=== PATIENT | male | born 1930 | race Caucasian/White ===

== ENCOUNTER 2016-11-01 10:19 | Inpatient (IN) | payer MEDICARE ==
[~2016-11-01] VITALS: Ht 152.4 cm; Wt 54.7 kg
[~2016-11-01 10:19] MED LIST: ACET-1757 PO; AMLO10TA4 PO; ASPI-650 PO; CEFD300C37 PO; CEPH-376 PO; DICY10CA53 PO; FERR324T5 PO; FERR324T8 PO; FURO-93 PO; HYDR-3144 PO; HYDR1TAB16 PO; ISOS60TA PO; LEVO125T5 PO; LEVO75TA5 PO; LISI-167 PO; LISI-170 PO; LISI40TA PO; METF500T4 PO; METO-93 PO; NITR0.4T8 SL; OMEP-110 PO; OXYC1TAB8 PO; PANT40TA3 PO; POTA10TA11 PO; SIMV10TA3 PO; SPIR50TA2 PO; SUCR1TAB PO; SUCR1TAB26 PO; SULF1TAB24 PO; TAMS0.4C2 PO; TEMA15CA PO; TEMA15CA6 PO; TERA10CA3 PO
[2016-11-01] MEDS ORDERED: SODIUM CHLORIDE 0.9% 1,000ML IVBOLUS ONE (11:30)
[2016-11-01] MEDS ORDERED: ACETAMINOPHEN 500 MG TABLET PO ONE (11:30)
[2016-11-01 12:07] LABS: ASPARTATE AMINO TRANSFERASE 14 U/L (15-37); BLOOD UREA NITROGEN 41 mg/dL (7-18)
[2016-11-01] MEDS ORDERED: ACETAMINOPHEN 500 MG TABLET ONE (12:11)
[2016-11-01] MEDS ORDERED: DICY10CA3 PO (12:19)
[2016-11-01] MEDS ORDERED: GABA600T2 PO (12:19)
[2016-11-01] MEDS ORDERED: GABA300C10 PO (12:19)
[2016-11-01] MEDS ORDERED: CEFTRIAXONE PMX 1GM/50ML 50 ML ONE (12:22)
[2016-11-01] MEDS ORDERED: AZITHROMYCIN 500 MG in SODIUM CHLORIDE 0.9% 250 ML IVPB ONE (12:30)
[2016-11-01] MEDS ORDERED: CEFTRIAXONE PMX 1GM/50ML 50 ML IVPB ONE (12:30)
[2016-11-01] MEDS ORDERED: SODIUM CHLORIDE 0.9% 1,000 ML IV ONE (12:53)
[2016-11-01] MEDS ORDERED: SODIUM CHLORIDE FLUSH 10ML SYR IVF PRN (13:00)
[2016-11-01] MEDS ORDERED: ONDANSETRON 2MG/ML, 2ML IVPush PRN (14:00)
[2016-11-01] MEDS ORDERED: ACETAMINOPHEN 325 MG TABLET PO PRN (14:00)
[2016-11-01] MEDS ORDERED: HYDROcodone/APAP 5/325 TABLET PO PRN (14:00)
[2016-11-01] MEDS ORDERED: morphine SULFATE 10 MG/ML, 1ML IVPush PRN (14:00)
[2016-11-01] MEDS ORDERED: hydrALAzine 20 MG/ML, 1ML IVPush PRN (14:00)
[2016-11-01] MEDS ORDERED: TEMAZEPAM 15 MG CAPSULE PO PRN (14:00)
[2016-11-01 14:30] VITALS: BP 105/61
[2016-11-01] MEDS: INSULIN ASPART 100 UNITS/ML, PEN SQ-INSULIN SCH ×2 (16:00→20:49)
[2016-11-01 18:59] VITALS: BP 104/60
[2016-11-01] MEDS: DICYCLOMINE 10 MG CAPSULE PO SCH ×2 (19:18→21:26)
[2016-11-01] MEDS: DOXYCYCLINE 100MG TABLET PO SCH (20:29)
[2016-11-01] MEDS: GABAPENTIN 300 MG CAPSULE PO SCH (20:29)
[2016-11-01] MEDS: TAMSULOSIN 0.4 MG CAP.ER.24H PO SCH (20:29)
[2016-11-01] MEDS: SUCRALFATE 1 GM TABLET PO SCH (20:29)
[2016-11-01] MEDS: SODIUM CHLORIDE 0.9% 1,000 ML IV SCH (20:49)
[2016-11-01] MEDS ORDERED: GABAPENTIN 300 MG CAPSULE PO SCH (21:00)
[2016-11-01] MEDS: HYDROcodone/APAP 10/325 MG TABLET PO SCH (21:26)
[2016-11-02 01:37] VITALS: BP 139/77
[2016-11-02 01:55] LABS: PATH.CAST-FLAG NOT PRESENT; SPERM-FLAG NOT PRESENT; SRC-FLAG NOT PRESENT; XTAL-FLAG NOT PRESENT; YLC-FLAG NOT PRESENT
[2016-11-02 06:00] LABS: ASPARTATE AMINO TRANSFERASE 7 U/L (15-37); BLOOD UREA NITROGEN 35 mg/dL (7-18)
[2016-11-02 07:53] VITALS: BP 143/82
[2016-11-02] MEDS: DICYCLOMINE 10 MG CAPSULE PO SCH ×3 (08:33→20:20)
[2016-11-02] MEDS: GABAPENTIN 100 MG CAPSULE PO SCH ×2 (08:33→20:20)
[2016-11-02] MEDS: SPIRONOLACTONE 50 MG TABLET PO SCH (08:33)
[2016-11-02] MEDS: FERROUS SULFATE 325 MG TABLET PO SCH (08:34)
[2016-11-02] MEDS: ISOSORBIDE MONONITRATE ER 60 MG TABLET PO SCH (08:34)
[2016-11-02] MEDS: PANTOPROZOLE 40MG TABLET PO SCH (08:35)
[2016-11-02] MEDS: LEVOTHYROXINE 75 MCG TABLET PO SCH (08:35)
[2016-11-02] MEDS: DOXYCYCLINE 100MG TABLET PO SCH ×2 (08:36→20:20)
[2016-11-02] MEDS: HYDROcodone/APAP 10/325 MG TABLET PO SCH ×2 (08:37→20:21)
[2016-11-02] MEDS: INSULIN ASPART 100 UNITS/ML, PEN SQ-INSULIN SCH ×4 (08:38→21:00)
[2016-11-02] MEDS ORDERED: TAMSULOSIN 0.4 MG CAP.ER.24H PO SCH (09:00)
[2016-11-02] MEDS: CEFTRIAXONE PMX 1GM/50ML 50 ML IV SCH (13:04)
[2016-11-02] MEDS: SODIUM CHLORIDE 0.9% 1,000 ML IV SCH ×2 (13:50→23:50)
[2016-11-02 14:02] VITALS: BP 116/61
[2016-11-02 19:39] VITALS: BP 135/79
[2016-11-02] MEDS: TAMSULOSIN 0.4 MG CAP.ER.24H PO SCH (20:20)
[2016-11-02] MEDS: SUCRALFATE 1 GM TABLET PO SCH (20:21)
[2016-11-02] MEDS: GABAPENTIN 300 MG CAPSULE PO SCH (20:21)
[2016-11-03] MEDS: SODIUM CHLORIDE 0.9% 1,000 ML IV SCH ×2 (03:10→17:28)
[2016-11-03 03:45] VITALS: BP 166/81
[2016-11-03 04:48] LABS: BLOOD UREA NITROGEN 27 mg/dL (7-18)
[2016-11-03] MEDS: INSULIN ASPART 100 UNITS/ML, PEN SQ-INSULIN SCH ×4 (07:00→20:12)
[2016-11-03 08:30] VITALS: BP 156/86
[2016-11-03] MEDS: GABAPENTIN 100 MG CAPSULE PO SCH ×2 (09:40→12:00)
[2016-11-03] MEDS: DOXYCYCLINE 100MG TABLET PO SCH ×2 (09:40→20:07)
[2016-11-03] MEDS: PANTOPROZOLE 40MG TABLET PO SCH (09:40)
[2016-11-03] MEDS: ISOSORBIDE MONONITRATE ER 60 MG TABLET PO SCH (09:41)
[2016-11-03] MEDS: SPIRONOLACTONE 50 MG TABLET PO SCH (09:41)
[2016-11-03] MEDS: DICYCLOMINE 10 MG CAPSULE PO SCH ×3 (09:41→20:07)
[2016-11-03] MEDS: LEVOTHYROXINE 75 MCG TABLET PO SCH (09:41)
[2016-11-03] MEDS: FERROUS SULFATE 325 MG TABLET PO SCH (09:41)
[2016-11-03] MEDS: HYDROcodone/APAP 10/325 MG TABLET PO SCH ×2 (09:44→20:12)
[2016-11-03 13:18] VITALS: BP 154/75
[2016-11-03] MEDS: CEFTRIAXONE PMX 1GM/50ML 50 ML IV SCH (13:40)
[2016-11-03] MEDS: GABAPENTIN 300 MG CAPSULE PO SCH (20:06)
[2016-11-03] MEDS: SUCRALFATE 1 GM TABLET PO SCH (20:06)
[2016-11-03] MEDS: TAMSULOSIN 0.4 MG CAP.ER.24H PO SCH (20:06)
[2016-11-03 20:43] VITALS: BP 144/71
[2016-11-04 02:24] VITALS: BP 165/86
[2016-11-04] MEDS: INSULIN ASPART 100 UNITS/ML, PEN SQ-INSULIN SCH ×4 (07:00→21:00)
[2016-11-04 08:13] VITALS: BP 152/86
[2016-11-04] MEDS: LEVOTHYROXINE 75 MCG TABLET PO SCH (09:00)
[2016-11-04] MEDS: GABAPENTIN 100 MG CAPSULE PO SCH ×2 (09:47→19:49)
[2016-11-04] MEDS: PANTOPROZOLE 40MG TABLET PO SCH (09:47)
[2016-11-04] MEDS: ISOSORBIDE MONONITRATE ER 60 MG TABLET PO SCH (09:47)
[2016-11-04] MEDS: SPIRONOLACTONE 50 MG TABLET PO SCH (09:47)
[2016-11-04] MEDS: DOXYCYCLINE 100MG TABLET PO SCH ×2 (09:47→21:12)
[2016-11-04] MEDS: FERROUS SULFATE 325 MG TABLET PO SCH (09:47)
[2016-11-04] MEDS: DICYCLOMINE 10 MG CAPSULE PO SCH ×3 (09:48→21:12)
[2016-11-04] MEDS: HYDROcodone/APAP 10/325 MG TABLET PO SCH ×2 (09:50→21:12)
[2016-11-04] MEDS: CEFTRIAXONE PMX 1GM/50ML 50 ML IV SCH (12:17)
[2016-11-04 13:24] VITALS: BP 121/80
[2016-11-04 19:04] VITALS: BP 132/82
[2016-11-04] MEDS: TAMSULOSIN 0.4 MG CAP.ER.24H PO SCH (21:12)
[2016-11-04] MEDS: SUCRALFATE 1 GM TABLET PO SCH (21:12)
[2016-11-04] MEDS: GABAPENTIN 300 MG CAPSULE PO SCH (21:12)
[2016-11-05 01:18] VITALS: BP 180/89
[2016-11-05 05:21] VITALS: BP 165/88
[2016-11-05] MEDS ORDERED: LEVOTHYROXINE 75 MCG TABLET PO SCH (06:00)
[2016-11-05] MEDS: INSULIN ASPART 100 UNITS/ML, PEN SQ-INSULIN SCH ×2 (07:00→11:00)
[2016-11-05 07:14] VITALS: BP 158/87
[2016-11-05] MEDS: GABAPENTIN 100 MG CAPSULE PO SCH (07:41)
[2016-11-05] MEDS: SPIRONOLACTONE 50 MG TABLET PO SCH (07:41)
[2016-11-05] MEDS: PANTOPROZOLE 40MG TABLET PO SCH (07:41)
[2016-11-05] MEDS: DICYCLOMINE 10 MG CAPSULE PO SCH (07:41)
[2016-11-05] MEDS: DOXYCYCLINE 100MG TABLET PO SCH (07:42)
[2016-11-05] MEDS: ISOSORBIDE MONONITRATE ER 60 MG TABLET PO SCH (07:42)
[2016-11-05] MEDS: FERROUS SULFATE 325 MG TABLET PO SCH (07:42)
[2016-11-05] MEDS: HYDROcodone/APAP 10/325 MG TABLET PO SCH (09:14)
[2016-11-05] MEDS ORDERED: DOXY100T PO (11:36)
[2016-11-05] MEDS ORDERED: LACT1CAP24 PO (11:36)
[2016-11-05] MEDS ORDERED: CEFD300C37 PO (11:36)
[2016-11-05] MEDS: CEFTRIAXONE PMX 1GM/50ML 50 ML IV SCH (12:01)
[2016-11-05 12:27] VITALS: BP 109/70
== END 2016-11-05 13:11 | disposition home or self-care (01) | DRG 871 ==
LOC: ED 12:52 → EDIP 12:53 → ED 12:55 → 3NW 14:20
PROVIDERS: ADMIT Internal Medicine; ATTEND Internal Medicine
DX: A41.9 Sepsis, unspecified organism (principal); J96.01 Acute respiratory failure with hypoxia; J18.9 Pneumonia, unspecified organism; E43 Unspecified severe protein-calorie malnutrition; N17.0 Acute kidney failure with tubular necrosis; I50.42 Chronic combined systolic (congestive) and diastolic (congestive) heart failure; N39.0 Urinary tract infection, site not specified; B96.20 Unspecified Escherichia coli [E. coli] as the cause of diseases classified elsewhere; E11.9 Type 2 diabetes mellitus without complications; E78.5 Hyperlipidemia, unspecified; G89.29 Other chronic pain; M54.9 Dorsalgia, unspecified; I11.0 Hypertensive heart disease with heart failure; I25.10 Atherosclerotic heart disease of native coronary artery without angina pectoris; K21.9 Gastro-esophageal reflux disease without esophagitis; K29.70 Gastritis, unspecified, without bleeding; N40.0 Benign prostatic hyperplasia without lower urinary tract symptoms; W19.XXXA Unspecified fall, initial encounter; Z86.73 Personal history of transient ischemic attack (TIA), and cerebral infarction without residual deficits; Z95.1 Presence of aortocoronary bypass graft; Y93.89 Activity, other specified; Y92.89 Other specified places as the place of occurrence of the external cause; Y99.8 Other external cause status; Z95.5 Presence of coronary angioplasty implant and graft; Z79.84 Long term (current) use of oral hypoglycemic drugs; Z79.899 Other long term (current) drug therapy; Z80.1 Family history of malignant neoplasm of trachea, bronchus and lung; Z80.41 Family history of malignant neoplasm of ovary; Z82.49 Family history of ischemic heart disease and other diseases of the circulatory system; Z83.3 Family history of diabetes mellitus
CPT/HCPCS: 36415; 70450; 71010; 80048; 80053; 81001; 82962; 83036; 83605; 83735; 84100; 84145; 84439; 84443; 85025; 87040; 87077; 87086; 87186; 87324; 93005; 96361; 96365; 96366; 96368; J0456; J0696; J1815; J7030; J7050

== ENCOUNTER → 2017-01-28 | Outpatient (CLI) | payer MEDICARE ==
[~2017-01-28] MED LIST changes: +DICY10CA3 PO; +DOXY100T PO; +GABA300C10 PO; +GABA600T2 PO; -HYDR-3144 PO; +HYDR-3245 PO; +LACT1CAP24 PO; +NITR0.4T28 SL; -NITR0.4T8 SL; -SUCR1TAB26 PO; +SUCR1TAB33 PO
== END | disposition home or self-care (01) ==
LOC: CFH 10:12
PROVIDERS: ATTEND Psychiatry & Neurology Neurology
DX: I65.23 Occlusion and stenosis of bilateral carotid arteries (principal); I10 Essential (primary) hypertension; E11.9 Type 2 diabetes mellitus without complications; I73.9 Peripheral vascular disease, unspecified; M50.320 Other cervical disc degeneration, mid-cervical region, unspecified level; M48.02 Spinal stenosis, cervical region; Z87.891 Personal history of nicotine dependence
CPT/HCPCS: 72141; 93880